=== PATIENT | female | born 1940 | race Caucasian/White ===

== ENCOUNTER 2023-10-21 22:07 | Inpatient (IN) | payer MEDICARE, BC, SELFPAY ==
[2023-10-21 17:08] VITALS: BP 127/79
[2023-10-21 17:31] LABS: % Basophils 0.2 % (0-2); % Immature Granulocytes 0.3 % (0-0.5); % Lymphocytes 6.8 % (20.5-51.1); % Monocytes 11.1 % (1.7-9.3); % Neutrophils 81.6 % (42.2-75.2); Absolute Immature Granulocytes 0.1 10^3/uL (0-0.05); Absolute Monocytes 1.6 10^3/uL (0.1-0.6); Absolute Neutrophils 11.8 10^3/uL (1.4-6.5); Hemoglobin 12.8 g/dL (12.0-16.0); Mean Corp Hgb Conc. 35.6 g/dL (33.0-37.0); Mean Corpuscular Hgb 32.2 pg (27.0-31.0); Mean Corpuscular Volume 90.7 fL (81.0-99.0); Mean Platelet Volume 8.8 fL (7.4-10.4); Nucleated Red Blood Cells % 0 %; Platelet Count 212 10^3/uL (130-400); Red Blood Cell Count 3.97 10^6/uL (4.20-5.40); Red Cell Dist. Width 12.7 % (11.5-14.5); White Blood Cell Count 14.5 10^3/uL (4.8-10.8)
[2023-10-21 17:49] LABS: ALT (SGPT) 46 U/L (0-35); AST (SGOT) 74 U/L (14-36); Albumin 3.6 g/dl (3.5-5.0); Alkaline Phosphatase 82 U/L (38-126); Blood Urea Nitrogen 20 mg/dl (7-17); Calcium 8.7 mg/dl (8.4-10.2); Carbon Dioxide 23 mmol/L (22-30); Chloride 102 mmol/L (98-107); Creatine Phosphokinase 719 U/L (30-135); Glucose 104 mg/dl (70-99); Potassium 3.4 mmol/L (3.5-5.1); Sodium 133 mmol/L (135-145); Total Bilirubin 1.2 mg/dl (0.2-1.3); Total Protein 6.5 g/dl (6.3-8.2); eGFR > 60.00
[2023-10-21] MEDS: NSS 1000 IV ×2 (20:06→23:46)
[2023-10-21] MEDS: MORPHINE SULFATE 2 MG IV (20:41)
[2023-10-21 20:44] VITALS: BP 117/61
--- NOTE | 2023-10-21 20:46 | ED.GENMED ---
History of Present Illness
General
Chief Complaint: Fall
Source: patient
Exam Limitations: none
Time Seen by Provider: 10/21/23 19:25
Nursing documentation reviewed up to this point in time: agreed with
Travel History
Have you had any contact with someone who has COVID-19?: No
Do you have any symptoms of coronavirus? Fever > 100 degrees, chills, cough, shortness of breath, sore throat, loss of taste or smell, muscle aches, or headache?: No
History of Present Illness
History of Present Illness:
Patient states 3 days ago she was bending down to look for something under her bed. States she fell back onto her buttocks. Unable to get self off of the floor. States she crawled on hands and knees. Was eventually able to get to phone and call
friend. Friend called 911 and seh was helped up into her chair. She states she has been unable to get out of her chair since. Complains of generlized body aches. Denies fever/chills. Not eating or drinking. Brought to eD via EMS [facility].
Lives alone
Past History
Past History
ED Past Medical History: COPD, Hypercholesterolemia and Other (Parkinsons disease. Stopped taking her meds.)
ED Past Surgical History: Cardiac (Mitral valve surgery)
Social History
Tobacco: Non-smoker
Personal: Single
Living: alone
Review of Systems
Review of Systems
Allergies reviewed?: Yes
All Other Systems: ROS reviewed and negative except as documented in HPI and ROS
Constitutional: Reports fatigue
EENT: Reports no symptoms
Respiratory: Reports no symptoms
Cardiac: Reports no symptoms
ABD/GI: Reports no symptoms
: Reports no symptoms
Musculoskeletal: Reports joint pain (generalized body aches. Increased pain to left knee, back)
Skin: Reports no symptoms
Neurological: Reports weakness
Psychiatric: Reports no symptoms
Phy Exam
General Physical Exam
General Presentation: moderate distress
General Skin: warm and dry
General Habitus: normal
General Mental: alert
General Hydration: dry mucous membranes
Cardiovascular Exam
Cardiovascular Exam: regular rate/rhythm
Pulmonary Exam
Pulmonary Exam: lungs clear and no respiratory distress
Gastrointestinal Exam
Gastrointestinal Exam: normal bowel sounds and non tender
Neurological Exam
Neurological Exam: alert, oriented x3, CN II-XII intact, no motor deficits, no sensory deficits and speech normal
Musculoskeletal Exam
Musculoskeletal Exam: full ROM, edema (trace edema BLE) and neuro vasc intact
Skin Exam
Skin Exam: normal color, warm/dry and no rash
Psychiatric Exam
Psychiatric Exam: normal mood/affect
Course
Orders/Labs/Results
Orders:
Orders
10/21/23 Breakfast
Cholesterol Lowering
At Your Request: Full Participation
Does patient need a safe tray?: No
Fluid Restriction: 1440 mL/day (48 oz)
Cholesterol Lowering: Sodium, 2 Gram
10/21/23 17:11
Electrocardiogram (*1) Urgent
Reason for Study: Other
Other Reason for Exam: fall
10/21/23 17:12
EKG- Treatment ONCE
10/21/23 17:22
Complete Blood Count/With Diff Urgent
Comprehensive Metabolic Panel Urgent
Creatine Phosphokinase Urgent
10/21/23 19:35
Urinalysis Reflex To Culture Urgent
Date Specimen was Collected: 10/23/23
Time Specimen was Collected: 10:09
0.9% Sodium Chloride 1000 ml [Nss] 1,000 ml IV BOLUS
CR Cervical Spine 2 or 3 Vw Urgent
Reason For Exam: fall
CR Lumbar Spine Comp Min 4 Vw* Urgent
Comment:
Reason For Exam: fall
CR Thoracic Spine 3 Views Urgent
Comment:
Reason For Exam: fall
Knee, Left 4 or More Views [CR Knee - Left 4 Or More View*] Urgent
Comment:
Reason For Exam: fall
10/21/23 19:36
CR Chest - 2 Views Urgent
Comment:
Reason For Exam: fall
10/21/23 20:37
Morphine Sulfate 2 mg .ROUTE .STK-MED ONE
10/21/23 20:41
Morphine Sulfate 2 mg IV NOW STA
10/21/23 21:31
Admit/Transfer Patient As Directed
Co-Sign Provider:
Level of Care: Inpatient admission
Assign to:: Medical/Surgical
Physician / Group: [email or web address]
Diagnosis: Fall/ Rhabdo/ dehydration/acute on chr gait d/o
Reason for Hospitalization: Fall/ Rhabdo/ dehydration/acute on chr gait d/o
Expected length of stay greater than two midnights?: Yes
ELOS- Estimated Length of Stay in days: 3
I certify the patient meets the requirements for IP care: Yes
10/21/23 21:33
Code Status As Directed
Resuscitation Status: Full Code
10/21/23 22:35
0.9% Sodium Chloride 1000 ml [Nss] 1,000 ml IV 80 mls/hr
Acetaminophen [Tylenol] 650 mg PO Q6HPRN PRN
Ketorolac [Toradol] 15 mg IV Q6HPRN PRN
10/21/23 22:35
Activity As Directed
Activity Level: With Assistance
Intake/ Output As Directed
Frequency: Per unit guidelines
Vital Signs As Directed
Frequency: Per unit guidelines
Weight As Directed
Frequency: Daily
DX Deep Vein Thrombosis Video Routine
10/22/23 06:50
Complete Blood Count/No Diff IN AM
Comprehensive Metabolic Panel IN AM
Creatine Phosphokinase IN AM
10/22/23 08:00
Atorvastatin [Lipitor] 20 mg PO DAILY
Famotidine [Pepcid] 40 mg PO BID
Tiotropium [place] 2.5 Mcg [Spiriva Respimat 2.5 Mcg] 2 puff INH R DAILY
10/22/23 18:00
Enoxaparin Sodium [Lovenox] 40 mg SC QPM
10/23/23 06:54
Creatine Phosphokinase IN AM
Abnormal Lab Results
10/21/23
17:22
WBC 14.5 H 10^3/uL
(4.8-10.8)
RBC 3.97 L 10^6/uL
(4.20-5.40)
Hct 36.0 L %
(37.0-47.0)
MCH 32.2 H pg
(27.0-31.0)
Abs Immat Gran (auto) 0.1 H 10^3/uL
(0-0.05)
Absolute Neuts (auto) 11.8 H 10^3/uL
(1.4-6.5)
Absolute Lymphs (auto) 1.0 L 10^3/uL
(1.2-3.4)
Absolute Monos (auto) 1.6 H 10^3/uL
(0.1-0.6)
Neutrophils % 81.6 H %
(42.2-75.2)
Lymphocytes % 6.8 L %
(20.5-51.1)
Monocytes % 11.1 H %
(1.7-9.3)
Sodium 133 L mmol/L
(135-145)
Potassium 3.4 L mmol/L
(3.5-5.1)
BUN 20 H mg/dl
(7-17)
Glucose 104 H mg/dl
(70-99)
AST 74 H U/L
(14-36)
ALT 46 H U/L
(0-35)
Creatine Kinase 719 H U/L
(30-135)
10/21/23 17:22
10/21/23 17:22
Vital Signs
Initial and Last Documented VS:
Initial Vital Signs
Temp Pulse Resp BP Pulse Ox
97.8 F 84 20 127/79 93
10/21/23 17:08 10/21/23 17:08 10/21/23 17:08 10/21/23 17:08 10/21/23 17:08
Last Documented Vital Signs
Temp Pulse Resp BP Pulse Ox
98 F 93 18 108/70 94
10/24/23 15:00 10/24/23 15:00 10/24/23 15:00 10/24/23 15:00 10/24/23 15:00
*Critical Care Note
Total Time (30-74mins, 75-104mins- exclusive of procedures): Not Applicable
ED Attending Note
-
Portions of this chart may have been created with voice recognition software.� Occasional wrong word or��sound alike� substitutions may have occurred due to the inherent limitations of voice recognition software.
Discharge Plan
Departure
Patient Disposition: Admit
Date of Disposition: 10/21/23
Time of Disposition: 20:58
Presentation/result/management discussed w/ accepting MD/DO: Hospitalist
Covid-19: Not Applicable
Discharge Problem:
Weakness, Dehydration, Rhabdomyolysis
Interventions
Interventions:
*General Assessment Last Done: 10/21/23 17:08
*Neglect/Abuse Screening Last Done: 10/21/23 17:08
ED- Fall Risk Assessment Last Done: 10/21/23 23:01
*Nursing Disposition Last Done: 10/21/23 23:01
ED-Musculoskeletal Assessment Last Done: 10/21/23 22:12
ED- Neurological Assessment Last Done: 10/21/23 22:12
ED-Skin Assessment Last Done: 10/21/23 22:12
Discharge Date and Time
Discharge Date/Time: 10/21/23 23:02
Musculoskeletal Injury Exam
Musculoskeletal Injury Exam
Left Knee:
Pain with Movement?: Moderate
Tender to palpation?: Moderate
Soft tissue swelling?: None
Contusion?: None
Hematoma-local bleeding into tissue?: None
Strain- Sprain- Tear (Connective tissue injury)?: None
Crepitus with movement?: No
Joint instability?: No
Malalignment/deformity?: No
Range of motion: Limited
Distal skin color and temperature: normal-warm & good color
Capillary Refill: normal
Normal distal neurovascular exam?: Yes
Back:
Pain with Movement?: Moderate
Tender to palpation?: Moderate
Soft tissue swelling?: None
External deformity and angulation?: None
Contusion?: None
Hematoma-local bleeding into tissue?: None
Strain- Sprain- Tear (Connective tissue injury)?: Moderate
Crepitus with movement?: No
Joint instability?: No
Malalignment/deformity?: No
Range of motion: Limited
Distal skin color and temperature: normal-warm & good color
Capillary Refill: normal
Normal distal neurovascular exam?: Yes
Neck:
Pain with Movement?: Mild
Tender to palpation?: None
Soft tissue swelling?: None
External deformity and angulation?: None
Contusion?: None
Strain- Sprain- Tear (Connective tissue injury)?: Mild
Crepitus with movement?: No
Joint instability?: No
Malalignment/deformity?: No
Distal skin color and temperature: normal-warm & good color
Capillary Refill: normal
Normal distal neurovascular exam?: Yes
--- NOTE | 2023-10-21 21:24 | HPS.HSE ---
Family Physician
-
Family Physician: Sarahi Buckley
Chief Complaint
-
falls and unable to get out of CHAIR
History of Present Illness
[facility]F [facility] with HX PKdz , no longer on anti PK Meds becuse she did not feel good who reportedly had fall back her buttocks while looking something under her bed. Reports difficult with getting uo she had to crawl on her knees. Then she called
friend , in turn friend called 911 and sit her in chair, Reports she was sitting there for last 3 days. Associated body aches and unable to get out of chair. No PO intake.
Toady she was [facility]
Medical History
Past Medical History
Past Medical History: Reports HTN, Hypercholesterolemia and Other (PARKINSON DZ )
Past Surgical History: Reports Cardiac (MV surgery )
Social History
Tobacco: Non-smoker
Alcohol: None
Living: Alone
Family History
Family History: Not pertinent
Allergies / Home Medications
Allergies reflects when Allergies were last updated in [facility].
Home Medications with original date entered in [facility]
Allergy/Medication List:
Allergies
Allergy/AdvReac Type Severity Reaction Status Date / Time
No Known Allergies Allergy Verified 10/21/23 17:08
Home Medications
calcium carbonate 200 mg calcium (500 mg) chewable tablet (Antacid (calcium carbonate)) 2 tab PO PRN PRN indigestion 10/26/13
cholecalciferol (vitamin D3) 50 mcg (2,000 unit) tablet 1,000 units PO DAILY 10/26/13
multivitamin (One Daily Multivitamin tablet) 1 tab PO DAILY 10/26/13
albuterol sulfate 90 mcg/actuation aerosol inhaler (Albuterol Sulfate HFA) 2 puff inhalation PRN PRN sob 02/29/16
atorvastatin 20 mg tablet 20 mg PO DAILY 02/29/16
pantoprazole 40 mg tablet,delayed release 40 mg PO PRN PRN Reflux 02/29/16
artificial tears(hypromellose) 0.3 % eye gel 1 drp BOTH EYES DAILY 03/11/16
zolpidem 10 mg tablet 10 mg PO HSPRN PRN Sleep 03/11/16
nitrofurantoin monohydrate/macrocrystals 100 mg capsule 100 mg PO BID UTI #10 caps 03/12/16
famotidine 40 mg tablet 40 mg PO BID 10/21/23
furosemide 20 mg tablet 20 mg PO DAILY 10/21/23
meloxicam 7.5 mg tablet 7.5 mg PO DAILY PRN mild pain 10/21/23
tiotropium bromide 18 mcg capsule with inhalation device (Spiriva with HandiHaler) 1 cap inhalation R DAILY 10/21/23
Review of Systems
-
Constitutional: Reports No Symptoms
EENT: Reports No Symptoms
Respiratory: Reports No Symptoms
Cardiac: Reports No Symptoms
Abdomen/GI: Reports No Symptoms
: Reports No Symptoms
Musculoskeletal: Reports See HPI
Skin: Reports No Symptoms
Neurological: Reports No Symptoms
Endocrine: Reports No Symptoms
Hematologic/Lymphatic: Reports No Symptoms
Psych: Reports No Symptoms
Physical Exam
Vital Signs
Vital Signs
Temp Pulse Resp BP Pulse Ox
97.8 F 86 20 117/61 87
10/21/23 17:08 10/21/23 20:44 10/21/23 17:08 10/21/23 20:44 10/21/23 20:44
Physical Exam
General: Well Developed and Other (anxious , obese )
HEENT: NormoCephalic and Anicteric
Respiratory: Clear; No Wheezes, Rales or Rhonchi
Cardiac: S1/S2 and Regular Rhythm
Breast: Deferred by me
GI: Soft and Non Tender
Rectal: Deferred by Provider
Genito-urinary: Deferred by me
Musculoskeletal: Other (pain at Lower back , FROM both hips ); No No Edema
Skin: No Jaundice
Neuro: Awake, Alert, AO x 3, No Motor Deficits and Other (Rt ahnd resting trmor )
Psych: Anxious
Laboratory Results
-
10/21/23 17:22
10/21/23 17:22
Laboratory Results
Total Bilirubin 1.2 mg/dl (0.2-1.3) 10/21/23 17:22
AST 74 U/L (14-36) H 10/21/23 17:22
ALT 46 U/L (0-35) H 10/21/23 17:22
Alkaline Phosphatase 82 U/L (38-126) 10/21/23 17:22
Data Reviewed
-
Diagnostic Radiology: Other (pending )
Medical Tests (Nuc Med, Echo, EKG etc): Report Reviewed by me
Lab Data: Labs Reviewed by me
Impression/Plan
-
Reviewed VS: afebrile HR 86 Normotensive POx 93--> 87 on RA
Vital Signs
Temp Pulse Resp BP Pulse Ox
97.8 F 86 20 117/61 87
10/21/23 17:08 10/21/23 20:44 10/21/23 17:08 10/21/23 20:44 10/21/23 20:44
Data
WCC 14.5
Na 133
K 3.4
BUN 20
Cr 0.6
eGFR > 60
AST 74 ALT 46
CPK 719
EKG: NSR , normal EKG
Pending XRs
Cx spine
CXR
Lt Knee
Lx spine
Thx spine
No prior hospitalist admission:
ASSESSMENT & PLAN
Pending Rx reconciliation
Fall complicated by mild Rhabdo and dehydration
Preserved renal function
Acute on chronic ambulatory dysfunction due to Parkinson dz
- check UA
- Held NSAIDs
- XRs to eval for any acute Fx s/p fall
- IV Bolus NS 1 L followed by 100/H
- PT/OT
- Trend CPKs
- Fall precaution
- PT/OT
Leucocytosis - reactive ?
- check UA
- check CXR
Mildly elevated LFTs or elevated AST due to Rhabdo
Borderline hyponatremia and hypokalemia
Suspect dehydration
- Trend BMP and LFTs
- cont Atorvastatin
Parkinson dz - non adherence to Rx for years
Rt hand resting tremors
Associated chronic ambulatory dysfunction use walker to Parkinson dz
Seems intact cognitive function
- Not on Meds for PKDz
- PT/OT
- Neuro consult
HLD on Atorvastatin
HX COPD on Spiriva
DVT Px: LMWH
Code: Full
IP MS
[2023-10-21 22:56] VITALS: BP 138/77
[2023-10-21 22:57] VITALS: BMI 32.8
[2023-10-21] MEDS: TORADOL 15 MG IV (23:52)
[2023-10-22] VITALS (8 sets, daily range): BP systolic 116–158; BP diastolic 61–80; PULSE 87–100; O2SAT 93; BMI 32.8
--- NOTE | 2023-10-22 01:35 | PTCARENOTE ---
Patient received at 2300. Patient puled over with assist x 2 . Vital signs taken BP 146/54, HR 60, respirations 18, O2 97% RA. Patient with complaints of diffuse Back pain. Assessment completed . Patient oriented to room. Patient safely maintained
--- NOTE | 2023-10-22 05:54 | PTCARENOTE ---
Patient complaining if nausea at this time . TOLL [employer] MECHANIC Arabella Serrato made aware . Awaiting orders at this time .
[2023-10-22] MEDS: COMPAZINE 5 MG IV (06:25)
[2023-10-22 07:45] LABS: Hematocrit 33.3 % (37.0-47.0); Hemoglobin 11.7 g/dL (12.0-16.0); Mean Corp Hgb Conc. 35.1 g/dL (33.0-37.0); Mean Corpuscular Hgb 32.8 pg (27.0-31.0); Mean Corpuscular Volume 93.3 fL (81.0-99.0); Mean Platelet Volume 9.5 fL (7.4-10.4); Platelet Count 192 10^3/uL (130-400); Red Blood Cell Count 3.57 10^6/uL (4.20-5.40); Red Cell Dist. Width 12.7 % (11.5-14.5); White Blood Cell Count 12.5 10^3/uL (4.8-10.8)
--- NOTE | 2023-10-22 08:06 | CON.NEURO4 ---
Addendum entered and electronically signed by Homero Holley MD 10/22/23 11:04:
I saw and evaluate the patient I reviewed the note by Mi Pierre agree with the findings with the following comments:
82-year-old woman known to our neurology practice for history of Parkinson's disease presents to the hospital after fall at home. 3 to 4 days ago she was bending down trying to get something from underneath her bed at home and she lost her balance
and fell backwards landing on her buttocks was on the floor for approximately 3 days without food or water intervention was able to crawl call 911 and was admitted to the hospital with findings of mild rhabdo myelitis CK 719.
Patient had been diagnosed with Parkinson's disease based on tremor and positive DaTscan. She was not able to tolerate immediate release Sinemet due to nausea.
She denies any hallucinations, orthostatic hypotension dizziness or syncope, no dysarthria or dysphagia. Denies constipation.
Neurologic examination is remarkable only for resting tremor on the right arm and mild cogwheel rigidity on the right arm mild bradykinesia on the right hand.
Assessment: Parkinson's disease associated ambulatory dysfunction and had fall, with impairments of Parkinson disease and deconditioning was not able to get up and had mild rhabdomyolysis from being down on the floor for approximately 2 to 3 days.
Recommendations
-Continue IV fluids and follow renal function treating rhabdomyolysis
-Patient agreeable to starting rotigotine patch therapy for Parkinson's disease, start 4 mg patch every 24 hours
-She should have outpatient neurology follow-up over telemedicine and will consider 1 tablet 25/100 extended release carbidopa/levodopa which may be more tolerable for her
-Encouraged more physical activity and exercise as largely sedentary at home
-Avoid antipsychotic medications
Original Note:
Consultation - Neurology 4
-
CONSULTING PHYSICIAN: Zeenat Holley MD
REFERRING PHYSICIAN: Hospitalists/Danika Agudelo PA-C
DICTATED BY: REYNALDO Baez
DATE/TIME OF REQUEST: 10/21/23
DATE/TIME OF CONSULTATION: 10/22/23
Reason for Consultation: Parkinson disease, fall
History of Present Illness:
This is an 82-year-old right-handed female who has presented to the hospital on 10/21/23 with report of a fall at home. Patient is known to our Neurology service and is followed by Dr. Holley as an outpatient for Parkinson disease.
From previous encounter by Adilia JACBOS on 02/14/22:
'From previous encounters:�������'This is a 79 years old female with history of hip replacement presented with tremor for evaluation. Patient was referred by her primary physician.�������Patient reported that her hand tremor started gradually over
the past year and predominantly in right hand. Hand tremor happens mainly with rest and she also has tremor with hand writing at times. She denies tremor with eating and drinking. She drinks coffee and alcohol occasionally and did not notice
difference of tremor after coffee intake. Patient also noticed stiffness of her body and slowness with walking. She reported gait difficulty since she had a hip replacement on the right side about 5 years ago. She feels difficulty to control her
right leg and difficulty with balance. She had a fall recently at home. She was scheduled with physical therapy this week. She does not routinely exercise at home.�������She reported good sense of smell. She does not have difficulty with speech or
swallowing. She is able to maintain most of her daily function independently. She walks with a cane outside and does not walk with a cane when she was at home. She has vivid dream at times him but she denies hallucinations. Her memory has been
stable over the past year. She does not have constipations. She denies family history of Parkinson disease. However her significant boyfriend had Parkinson disease which makes her concern if she has Parkinson disease.�������
She has her DaTscan scheduled 01/2021- Positive for parkinsonian syndrome.�������
Interval history:�������Since last visit, patient reported tremor improved with taking Sinemet 25/100 mg to 1 tablet tid with carbidopa 25 mg tid. NO SE from medications. She has difficulty with balance and walks with a cane. But she has no falls
recently and has no hallucinations. She reported she was found lung mass and had surgery recently to remove the lung mass with thoracic surgeon.'�������
Today 02/14/2022�������Patient seen in the office. Patient has been continuing to take Sinemet and carbidopa for nausea. She has been doing well. She reports her tremor is well controlled medication. She has not had any recent falls. She does state
that her balance is off. She stopped physical therapy because she did not think it was helpful. She has been using a cane. She denies any hallucinations. She denies any dark line in her memory.'
Four days ago on 10/18/23, patient reports that she was bending down trying to get something from under her bed, when she lost her balance and fell backwards onto the ground landing on her buttocks. She was able to crawl to her phone and called a
friend, who called 911. EMS helped the patient up and into a chair, but patient reports she was too weak to stand up out of the chair and spent the past three days sitting there without food or water. CK on admission was 719, WBC 14.5, AST 74, ALT
46. Neurology is consulted due to patient reporting that she has not been taking her Sinemet and carbidopa due to nausea, and concern that this is affecting her ambulation. Patient reports that she has a daily intermittent tremor in her right hand
mostly at rest. She denies any hallucinations, swallowing/speech difficulty, changes in smell, dizziness with standing, and shuffled gait. She does endorse that she is 'slow getting around.' She attributes this to getting older. She uses a cane for
ambulation at all times. She still drives and does her own grocery shopping/cooking. She is not taking her medication due to nausea but has not tried any alternative PD treatments. She was in physical therapy as an outpatient, but she reports she
stopping going to that too. Currently, she endorses lower back pain while laying in bed, generalized aching, and weakness. She denies any headache, dizziness, vision changes, speech/swallow difficulty, nausea, numbness, chest pain, palpitations, and
shortness of breath.
Past Medical History: Parkinson disease, COPD, HLD, insomnia, osteopenia, osteoarthritis, GERD, chronic back pain, tinnitus, pelvic mass, cystitis, peripheral neuropathy
Surgical History: B/L cataract removal, hysterectomy, appendectomy, hernia repair, R THR, lung nodule resection
Family History: Father- CVA.
Social History: Former smoker.
Allergies: No known allergies.
Home Medications: See below.
Review of Symptoms:
Patient denies any fever, headache, chest pain, shortness of breath, GI or symptoms.
�Per the HPI.�All systems are reviewed negative except above.
Physical Exam:
The patient is afebrile, abdomen is nondistended, breathing is unlabored, skin is warm and dry, no edema.
Neurologic Examination:
The patient is awake, alert and oriented x 3, some forgetfulness to recent events. She is able to follow commands and answer questions appropriately. There is no aphasia or dysarthria. On cranial nerve assessment, pupils are 3 mm bilateral, round
and reactive to light and accommodation. Visual hendrickson are full. Extraocular movements are intact. Facial sensations are intact and bilaterally symmetrical, there is no facial asymmetry. Hearing is intact bilaterally to normal conversation volume.
Tongue palate and uvula are midline. Sternocleidomastoid strengths are full bilaterally. Motor strengths are 5/5 bilateral upper and 3/5 bilateral lower extremities on medical research [place] scale. There is no drift. There is an intermittent low
amplitude semirhythmic tremor in the right hand mostly at rest. Deep tendon reflexes are 1+ bilateral upper and absent bilateral lower extremities and Babinski is absent bilaterally. There was no extinction noted on double simultaneous stimulation.
Coordination is intact by finger to nose bilaterally.
Lab Results: See below.
Neuro Imaging: None.
Differentials for the patient's presentation include:
1. Parkinson disease
2. Ambulatory dysfunction/deconditioning
3. Rhabdomyolysis
Patient has the following risk factors for their symptoms: PD not on meds, sedentary lifestyle
Recommendations:
-Initiate Neupro 4mg transdermal patch daily.
-Check orthostatic vital signs BID.
-PT/OT/ST evaluations. Patient would benefit from outpatient physical therapy.
-Urinalysis pending.
-Supportive care per Hospitalists service.
-Patient should follow-up with Neurology as an outpatient in about 4 weeks. May see the NUCLEAR MONITORING TECHNICIAN or Dr. Holley, telehealth visit is acceptable.
Discussed patient care with: Dr. Holley, the patient
Vital Signs and Labs
-
Vital Signs and Labs:
Vital Signs
Temp Pulse Resp BP Pulse Ox
98.2 F 72 18 116/63 93
10/22/23 07:00 10/22/23 07:00 10/22/23 07:00 10/22/23 07:00 10/22/23 07:00
Lab Results
10/22/23 06:50
10/22/23 06:50
Sodium 133 mmol/L (135-145) L 10/22/23 06:50
Potassium 3.1 mmol/L (3.5-5.1) L 10/22/23 06:50
BUN 20 mg/dl (7-17) H 10/22/23 06:50
Glucose 88 mg/dl (70-99) 10/22/23 06:50
Calcium 7.9 mg/dl (8.4-10.2) L 10/22/23 06:50
Medications
-
Active Medications
Generic Name Dose Route Start Last Admin
Trade Name Freq PRN Reason Stop Dose Admin
Acetaminophen 650 mg 10/21/23 22:35
Acetaminophen 325 Mg Tablet PO 11/18/23 22:34
Q6HPRN PRN
mild pain/ fever>100.5F
Atorvastatin Calcium 20 mg 10/22/23 08:00 10/22/23 09:05
Atorvastatin (Lipitor) 20 Mg Tablet PO 11/19/23 07:59 20 mg
DAILY CHADNRAKANT Administration
Enoxaparin Sodium 40 mg 10/22/23 18:00
Enoxaparin Sodium 40 Mg/0.4 Ml Syringe SC 11/19/23 17:59
QPM CHANDRAKANT
Famotidine 40 mg 10/22/23 08:00 10/22/23 09:05
Famotidine 40 Mg Tablet PO 11/19/23 07:59 40 mg
BID CHANDRAKANT Administration
Sodium Chloride 1,000 mls @ 80 mls/hr 10/21/23 22:35 10/21/23 23:46
Nss IV 1,000 mls
.[id number] CHANDRAKANT Administration
Ketorolac Tromethamine 15 mg 10/21/23 22:35 10/22/23 09:09
Ketorolac 15 Mg/Ml Injection IV 10/26/23 22:34 15 mg
Q6HPRN PRN Administration
mod/severe pain
Potassium Chloride 20 meq 10/22/23 20:00
Potassium Chloride 20 Meq Extended Release Tablet PO 11/19/23 19:59
BID CHANDRAKANT
Rotigotine 4 mg 10/22/23 10:15
Rotigotine (Neupro) 4 Mg Patch TRANSDERM 11/19/23 10:14
DAILY CHANDRAKANT
Sodium Chloride 0 flush 10/21/23 23:00
Sodium Chloride 0.9% (Flush) Syringe IV 11/18/23 22:59
PER PROTOCOL CHANDRAKANT
Tiotropium [place] 2 puff 10/22/23 08:00 10/22/23 08:34
Tiotropium (Spiriva Respimat) 2.5 Mcg Inhaler INH 11/19/23 07:59 2 puff
R DAILY CHANDRAKANT Administration
Home Medications
Medication Instructions Recorded
cholecalciferol (vitamin D3) 50 1,000 units PO DAILY 10/26/13
mcg (2,000 unit) tablet
multivitamin (One Daily 1 tab PO DAILY 10/26/13
Multivitamin tablet)
atorvastatin 20 mg tablet 20 mg PO DAILY 02/29/16
famotidine 40 mg tablet 40 mg PO BID 10/21/23
furosemide 20 mg tablet 20 mg PO DAILY 10/21/23
meloxicam 7.5 mg tablet 7.5 mg PO HS PRN mild pain 10/21/23
tiotropium bromide 18 mcg capsule 1 cap inhalation R DAILY 10/21/23
with inhalation device (Spiriva
with HandiHaler)
trazodone 100 mg tablet 100 mg PO HS 10/21/23
[2023-10-22 08:15] LABS: ALT (SGPT) 38 U/L (0-35); AST (SGOT) 52 U/L (14-36); Albumin 2.8 g/dl (3.5-5.0); Alkaline Phosphatase 86 U/L (38-126); Blood Urea Nitrogen 20 mg/dl (7-17); Calcium 7.9 mg/dl (8.4-10.2); Carbon Dioxide 22 mmol/L (22-30); Chloride 105 mmol/L (98-107); Creatine Phosphokinase 396 U/L (30-135); Estimated Creatinine Clearance 77 ml/min; Glucose 88 mg/dl (70-99); Potassium 3.1 mmol/L (3.5-5.1); Sodium 133 mmol/L (135-145); Total Protein 5.3 g/dl (6.3-8.2); eGFR > 60.00
[2023-10-22] MEDS: SPIRIVA RESPIMAT 2.5 MCG 2 PUFF INH (08:34)
[2023-10-22] MEDS: LIPITOR 20 MG PO (09:05)
[2023-10-22] MEDS: PEPCID 40 MG PO ×2 (09:05→20:34)
[2023-10-22] MEDS: TORADOL 15 MG IV ×2 (09:09→17:23)
--- NOTE | 2023-10-22 09:42 | W.PN.HOSP.TC ---
Addendum entered and electronically signed by Waldo Rosado DO 10/22/23 16:28:
Mild traumatic rhabdomyolysis due to fall
Original Note:
Today's Communication/Plan
-
PT/OT
Orthostatics
Replete potassium
TSH
Urine studies
Neurology consult
Assessment / Plan
Assessment / Plan
Gen-AAOx3, NAD
HEENT-NC, AT, anicteric, clear oral mm
Neck-supple
CV-reg, no M, +S1/S2
Lungs-clear B/L
Abd-soft, NT, ND
Ext-no edema
Musculoskeletal-no cyanosis, clubbing
Skin-warm and dry
Neuro-grossly non-focal
Psych-calm, cooperative
Ambulatory dysfunction/fall -due to deconditioning, generalized weakness, aging and frailty. PT/OT consulted. Check orthostatics.
Hyponatremia -sodium stable at 133. Check TSH, urine studies.
Hypokalemia -will replete. Check magnesium.
Elevated transaminases -hold atorvastatin. Labs trending down.
Elevated white blood cells -suspect leukemoid reaction. Doubt infection.
Mild rhabdomyolysis -due to fall, CPK trending down.
Parkinson's disease -not on meds as patient states they cause too many side effects. Neurology consulted.
Hyperlipidemia
COPD without exacerbation -stable.
Full code
Dispo -SNF versus home with VN.
Anticipated Discharge: Within 24 hours
Subjective/Interval History
-
Date of Service: October 22, 2023
Patient seen and examined. No complaints currently. Sitting in the chair.
Objective Data
-
Labs:
Laboratory Results
10/22/23
06:50
WBC 12.5 H
Hgb 11.7 L
Hct 33.3 L
Plt Count 192
Sodium 133 L
Potassium 3.1 L
Chloride 105
Carbon Dioxide 22
BUN 20 H
Creatinine 0.5 L
Glucose 88
Calcium 7.9 L
Total Bilirubin 1.0
AST 52 H
ALT 38 H
Alkaline Phosphatase 86
Vital Signs:
Vital Signs
Temp Pulse Resp BP Pulse Ox
98.2 F 72 18 116/63 93
10/22/23 07:00 10/22/23 07:00 10/22/23 07:00 10/22/23 07:00 10/22/23 07:00
Review of Systems
-
History Source: Patient
All other systems: Reviewed and negative
[2023-10-22 10:19] LABS: Magnesium 2.1 mg/dl (1.6-2.3)
[2023-10-22] MEDS: KCL 40 MEQ PO (10:41)
[2023-10-22] MEDS: NEUPRO 4 MG TRANSDERM (10:42)
[2023-10-22 11:11] LABS: TSH 2.06 uIU/ml (0.47-4.68)
[2023-10-22] MEDS: NSS 1000 IV (12:06)
--- NOTE | 2023-10-22 12:27 | CM ---
building rental manager reviewed patient's chart and met with patient and patient reports that she lives alone in a multilevel home with elevator, patient was independent with adl's and used cane with ambulation. Patient reports she has 2 very good friends in
area and her sister lives in [place]. Patient drives. building rental manager reviewed with patient possible discharge options and patient is hoping that she will be cleared to return to home, patient is agreeable to visiting nurses at discharge and
selected [facility]. [facility] liaison is aware.
Pharmacy: [facility]
Physician: Sarahi Buckley
Plan; building rental manager will await recommendations from physical therapy.
--- NOTE | 2023-10-22 13:30 | VNURNOTE ---
Home health liaison met with patient to discuss [facility] services, visit scheduling/frequency, homebound status and pet policy. Patient understands home visits will be 1-2 times a week to assess and teach medical management. Patient aware a visiting
nurse will contact them for start of care within 1-2 days after discharge from . Brochure given with contact information. [facility] Referral completed in care port
--- NOTE | 2023-10-22 15:44 | PN.CDI ---
CDI
- -
CDI:
Physician Documentation Request
Admit Date: 10/21/23 22:07
Dear Doctor Ashlee,
Patient admitted following a fall.
H&P: 'had fall back her buttocks while looking something under her bed....sit her in chair, Reports she was sitting there for last 3 days.'
10/22 Hospitalist PN: 'Mild rhabdomyolysis -due to fall'
Based on the above, please clarify in your note the type of rhabdomyolysis:
Traumatic
Nontraumatic
Other
Use of terms such as suspected, likely, concern for, or probable (associated with a specific diagnosis that is being evaluated, monitored, or treated as if it exists) are acceptable and can be coded in the inpatient setting, when documented at the
time of discharge.
Thank you,
Blossom Valiente RN, BSN
CDI Specialist
Available via [employer] text
Please use your independent medical judgment in providing your response.
[2023-10-22] MEDS: LOVENOX 40 MG SC (17:23)
[2023-10-22] MEDS: KCL 20 MEQ PO (20:34)
[2023-10-23] MEDS: NSS 1000 IV (00:51)
[2023-10-23] MEDS: TORADOL 15 MG IV (05:22)
[2023-10-23 06:00] VITALS: BMI 33.9
[2023-10-23 07:33] LABS: ALT (SGPT) 36 U/L (0-35); AST (SGOT) 39 U/L (14-36); Albumin 2.6 g/dl (3.5-5.0); Alkaline Phosphatase 77 U/L (38-126); Blood Urea Nitrogen 14 mg/dl (7-17); Calcium 7.7 mg/dl (8.4-10.2); Carbon Dioxide 23 mmol/L (22-30); Chloride 109 mmol/L (98-107); Creatine Phosphokinase 168 U/L (30-135); Estimated Creatinine Clearance 78 ml/min; Glucose 103 mg/dl (70-99); Potassium 3.5 mmol/L (3.5-5.1); Sodium 134 mmol/L (135-145); Total Bilirubin 0.8 mg/dl (0.2-1.3); Total Protein 5.1 g/dl (6.3-8.2); eGFR > 60.00
[2023-10-23] MEDS: SPIRIVA RESPIMAT 2.5 MCG 2 PUFF INH (07:54)
[2023-10-23 07:56] VITALS: BP 134/69
[2023-10-23] MEDS: KCL 20 MEQ PO (08:47)
[2023-10-23] MEDS: NEUPRO 4 MG TRANSDERM (08:47)
[2023-10-23] MEDS: LIPITOR 20 MG PO (08:47)
[2023-10-23] MEDS: PEPCID 40 MG PO ×2 (08:47→20:32)
[2023-10-23 10:12] VITALS: BP 125/74; PULSE 83
[2023-10-23 10:15] VITALS: BP 124/74
[2023-10-23 10:27] LABS: Urine Albumin 1+ (Neg - Trace); Urine Bilirubin 1+ (Negative); Urine Character Very Cloudy (Clear); Urine Color Brown; Urine Glucose Negative (Negative); Urine Ketone 1+ (Negative); Urine Leukocyte 2+ (Negative); Urine Nitrite Negative (Negative); Urine Occult Blood 4+ (Negative); Urine Specific Gravity 1.015 (<1.030); Urine Urobilinogen Negative (Neg - 1+)
--- NOTE | 2023-10-23 10:34 | CM ---
ranch manager reviewed patient's chart and met with patient, director of casework department reviewed with patient [facility], however patient has selected [facility] skilled. Referral sent to [facility] skilled.
Plan; Skilled placement at [facility].
[2023-10-23 10:44] LABS: Urine Bacteria Many (Negative); Urine Red Blood Cell 16-20 /HPF (0-2); Urine White Cell 80-90 /HPF (0-5)
[2023-10-23 10:53] LABS: Osmolality Urine 635 mOsm/kg (300-900)
--- NOTE | 2023-10-23 10:54 | W.PN.HOSP.TC ---
Today's Communication/Plan
-
Fluid restriction
Start MiraLAX
Continue potassium
Repeat labs in the morning
Continue PT/OT
Assessment / Plan
Assessment / Plan
Gen-AAOx3, NAD
HEENT-NC, AT, anicteric, clear oral mm
Neck-supple
CV-reg, no M, +S1/S2
Lungs-clear B/L
Abd-soft, NT, ND
Ext-no edema
Musculoskeletal-no cyanosis, clubbing
Skin-warm and dry
Neuro-grossly non-focal
Psych-calm, cooperative
Ambulatory dysfunction/fall -due to deconditioning, generalized weakness, aging, Parkinson's disease, and frailty. PT/OT consulted. She is not orthostatic.
Hyponatremia -sodium stable at 134. TSH normal. Urine osmolality 635. Urine sodium pending. Will fluid restrict.
Hypokalemia -magnesium was normal. Potassium 3.5 today. Continue repletion.
Elevated transaminases -etiology unclear, hold atorvastatin. Labs trending down.
Elevated white blood cells -suspect leukemoid reaction. Doubt infection.
Mild traumatic rhabdomyolysis -due to fall, CPK trending down.
Parkinson's disease -not on meds prior to admission as patient states they cause too many side effects. Neurology consulted, recommendation made to start rotigotine patch. Outpatient neurology follow-up with consideration of starting extended
release Sinemet.
Hyperlipidemia
COPD without exacerbation -stable.
Full code
Dispo -stable for discharge to SNF, will be going to [facility] tomorrow as per case management.
Anticipated Discharge: Within 24 hours
Subjective/Interval History
-
Date of Service: October 23, 2023
Patient seen and examined. Feels constipated.
Objective Data
-
Labs:
Laboratory Results
10/23/23
06:54
Sodium 134 L
Potassium 3.5
Chloride 109 H
Carbon Dioxide 23
BUN 14
Creatinine 0.5 L
Glucose 103 H
Calcium 7.7 L
Total Bilirubin 0.8
AST 39 H
ALT 36 H
Alkaline Phosphatase 77
Vital Signs:
Vital Signs
Temp Pulse Resp BP Pulse Ox
98.1 F 91 16 134/69 92
10/23/23 07:56 10/23/23 07:56 10/23/23 07:56 10/23/23 07:56 10/23/23 07:56
I&O
10/22/23 10/23/23 10/24/23
06:59 06:59 06:59
Intake Total 2720 / 2720
Output Total 500 / 500
Balance 2220 / 2220
Review of Systems
-
History Source: Patient
All other systems: Reviewed and negative
[2023-10-23 11:31] LABS: Urine Sodium 69 mmol/L (30-90)
[2023-10-23] MEDS: MIRALAX 17 GRAMS PO (12:19)
[2023-10-23 15:51] VITALS: BP 124/64
[2023-10-23] MEDS: TYLENOL 650 MG PO (15:52)
--- NOTE | 2023-10-23 15:54 | PTCARENOTE ---
Notified provider of patient's temperature, given tylenol
[2023-10-23] MEDS: LOVENOX 40 MG SC (17:35)
[2023-10-23] MEDS: KCL PO ×2 (20:32→20:41)
[2023-10-23 23:00] VITALS: BP 149/78
[2023-10-24 05:30] VITALS: BMI 32.6
[2023-10-24 06:05] LABS: % Basophils 0.2 % (0-2); % Eosinophils 0.1 % (0-6); % Immature Granulocytes 0.7 % (0-0.5); % Lymphocytes 8.7 % (20.5-51.1); % Monocytes 10.2 % (1.7-9.3); % Neutrophils 80.1 % (42.2-75.2); Absolute Immature Granulocytes 0.1 10^3/uL (0-0.05); Absolute Lymphocytes 1.1 10^3/uL (1.2-3.4); Absolute Monocytes 1.3 10^3/uL (0.1-0.6); Absolute Neutrophils 10.1 10^3/uL (1.4-6.5); Hematocrit 32.1 % (37.0-47.0); Hemoglobin 11.2 g/dL (12.0-16.0); Mean Corp Hgb Conc. 34.9 g/dL (33.0-37.0); Mean Corpuscular Hgb 32.1 pg (27.0-31.0); Mean Platelet Volume 9.4 fL (7.4-10.4); Nucleated Red Blood Cells % 0 %; Platelet Count 229 10^3/uL (130-400); Red Blood Cell Count 3.49 10^6/uL (4.20-5.40); Red Cell Dist. Width 13.1 % (11.5-14.5); White Blood Cell Count 12.6 10^3/uL (4.8-10.8)
[2023-10-24 06:40] LABS: ALT (SGPT) 37 U/L (0-35); AST (SGOT) 38 U/L (14-36); Albumin 2.6 g/dl (3.5-5.0); Alkaline Phosphatase 87 U/L (38-126); Blood Urea Nitrogen 12 mg/dl (7-17); Calcium 7.8 mg/dl (8.4-10.2); Carbon Dioxide 26 mmol/L (22-30); Chloride 105 mmol/L (98-107); Estimated Creatinine Clearance 77 ml/min; Glucose 102 mg/dl (70-99); Potassium 3.5 mmol/L (3.5-5.1); Sodium 134 mmol/L (135-145); Total Bilirubin 0.8 mg/dl (0.2-1.3); Total Protein 5.1 g/dl (6.3-8.2); eGFR > 60.00
[2023-10-24 07:00] VITALS: BP 130/69
--- NOTE | 2023-10-24 08:01 | W.PN.HOSP.TC ---
Addendum entered and electronically signed by Waldo Rosado DO 10/24/23 11:33:
COVID-19 antigen negative.
Urine culture shows greater than 100,000 E. coli.
Blood cultures negative.
Will start empiric IV ceftriaxone for presumed UTI pending culture data.
Original Note:
Today's Communication/Plan
-
Await cultures
COVID-19
Assessment / Plan
Assessment / Plan
Gen-AAOx3, NAD
HEENT-NC, AT, anicteric, clear oral mm
Neck-supple
CV-reg, no M, +S1/S2
Lungs-clear B/L
Abd-soft, NT, ND
Ext-no edema
Musculoskeletal-no cyanosis, clubbing
Skin-warm and dry
Neuro-grossly non-focal
Psych-calm, cooperative
Sepsis -was not present on admission. No localizing findings. Denies cough or shortness of breath. She does have low-grade leukocytosis and yesterday had a low-grade fever. Etiology unclear. Check COVID-19 antigen. Blood cultures pending. She
has no urinary symptoms, doubt UTI despite pyuria on urinalysis. Currently not on antibiotics.
Ambulatory dysfunction/fall -due to deconditioning, generalized weakness, aging, Parkinson's disease, and frailty. PT/OT consulted. She is not orthostatic.
Hyponatremia -sodium stable at 134. TSH normal. Urine osmolality 635. Urine sodium pending. Will fluid restrict.
Hypokalemia -magnesium was normal. Potassium 3.5 today. Continue repletion. Potassium stable.
Elevated transaminases -etiology unclear, hold atorvastatin. Labs trending down.
Mild traumatic rhabdomyolysis -due to fall, CPK trending down.
Parkinson's disease -not on meds prior to admission as patient states they cause too many side effects. Neurology consulted, recommendation made to start rotigotine patch. Outpatient neurology follow-up with consideration of starting extended
release Sinemet.
Hyperlipidemia
COPD without exacerbation -stable.
Full code
Dispo -anticipate discharge to [facility] when medically stable. Awaiting blood culture results, COVID-19 test.
Anticipated Discharge: Within 24 hours
Subjective/Interval History
-
Date of Service: October 24, 2023
Patient seen and examined. States she does not feel well but cannot go into further detail.
Objective Data
-
Labs:
Laboratory Results
10/24/23
05:16
WBC 12.6 H
Hgb 11.2 L
Hct 32.1 L
Plt Count 229
Sodium 134 L
Potassium 3.5
Chloride 105
Carbon Dioxide 26
BUN 12
Creatinine 0.5 L
Glucose 102 H
Calcium 7.8 L
Total Bilirubin 0.8
AST 38 H
ALT 37 H
Alkaline Phosphatase 87
Vital Signs:
Vital Signs
Temp Pulse Resp BP Pulse Ox
97.6 F 84 20 149/78 93
10/23/23 23:00 10/23/23 23:00 10/23/23 23:00 10/23/23 23:00 10/23/23 23:00
I&O
10/23/23 10/24/23 10/25/23
06:59 06:59 06:59
Intake Total 2720 / 2720 940 / 940
Output Total 500 / 500
Balance 2220 / 2220 940 / 940
Review of Systems
-
History Source: Patient
All other systems: Reviewed and negative
[2023-10-24] MEDS: LIPITOR 20 MG PO (08:34)
[2023-10-24] MEDS: MIRALAX 17 GRAMS PO (08:34)
[2023-10-24] MEDS: TORADOL 15 MG IV (08:34)
[2023-10-24] MEDS: KCL PO ×2 (08:34→08:41)
[2023-10-24] MEDS: NEUPRO 4 MG TRANSDERM (08:34)
[2023-10-24] MEDS: PEPCID 40 MG PO ×2 (08:34→20:33)
[2023-10-24] MEDS: SPIRIVA RESPIMAT 2.5 MCG 2 PUFF INH (08:38)
[2023-10-24 08:50] LABS: COVID-19 Antigen Negative (Negative)
--- NOTE | 2023-10-24 09:34 | PTCARENOTE ---
Notified provider of patient's preliminary UC results showing e.coli. No further interventions at this time.
[2023-10-24] MEDS: ROCEPHIN 1000 MG IV (13:21)
[2023-10-24] MEDS: STERILE WATER FOR INJECTION 10 ML IV (13:22)
[2023-10-24 15:00] VITALS: BP 108/70
[2023-10-24 15:10] VITALS: BP 108/70; PULSE 93
[2023-10-24 15:40] VITALS: BP 108/70
[2023-10-24] MEDS: LOVENOX 40 MG SC (18:23)
[2023-10-24] MEDS: KCL 20 MEQ PO (20:33)
[2023-10-24 23:00] VITALS: BP 134/82
[2023-10-25 04:30] VITALS: BMI 33.0
[2023-10-25 07:00] VITALS: BP 129/78
[2023-10-25 07:44] LABS: % Basophils 0.3 % (0-2); % Eosinophils 0.8 % (0-6); % Immature Granulocytes 0.7 % (0-0.5); % Neutrophils 76.2 % (42.2-75.2); Absolute Eosinophils 0.1 10^3/uL (0-0.7); Absolute Immature Granulocytes 0.1 10^3/uL (0-0.05); Absolute Lymphocytes 1.3 10^3/uL (1.2-3.4); Absolute Monocytes 1.3 10^3/uL (0.1-0.6); Absolute Neutrophils 8.8 10^3/uL (1.4-6.5); Hematocrit 31.7 % (37.0-47.0); Hemoglobin 11.2 g/dL (12.0-16.0); Mean Corp Hgb Conc. 35.3 g/dL (33.0-37.0); Mean Corpuscular Hgb 32.5 pg (27.0-31.0); Mean Corpuscular Volume 91.9 fL (81.0-99.0); Mean Platelet Volume 9.1 fL (7.4-10.4); Nucleated Red Blood Cells % 0 %; Platelet Count 245 10^3/uL (130-400); Red Blood Cell Count 3.45 10^6/uL (4.20-5.40); Red Cell Dist. Width 12.9 % (11.5-14.5); White Blood Cell Count 11.5 10^3/uL (4.8-10.8)
[2023-10-25 08:09] LABS: ALT (SGPT) 34 U/L (0-35); AST (SGOT) 32 U/L (14-36); Albumin 2.5 g/dl (3.5-5.0); Alkaline Phosphatase 90 U/L (38-126); Blood Urea Nitrogen 11 mg/dl (7-17); Carbon Dioxide 28 mmol/L (22-30); Chloride 102 mmol/L (98-107); Estimated Creatinine Clearance 77 ml/min; Glucose 100 mg/dl (70-99); Potassium 3.5 mmol/L (3.5-5.1); Sodium 132 mmol/L (135-145); Total Bilirubin 0.8 mg/dl (0.2-1.3); Total Protein 5.1 g/dl (6.3-8.2); eGFR > 60.00
[2023-10-25] MEDS: NEUPRO 4 MG TRANSDERM (08:11)
[2023-10-25] MEDS: PEPCID 40 MG PO (08:12)
[2023-10-25] MEDS: MIRALAX 17 GRAMS PO (08:12)
[2023-10-25] MEDS: KCL 20 MEQ PO (08:12)
[2023-10-25] MEDS: LIPITOR 20 MG PO (08:12)
[2023-10-25] MEDS: SPIRIVA RESPIMAT 2.5 MCG 2 PUFF INH (08:49)
--- NOTE | 2023-10-25 09:22 | W.PN.HOSP.TC ---
Today's Communication/Plan
-
Discharge planning
Change to Macrobid
Assessment / Plan
Assessment / Plan
Gen-AAOx3, NAD
HEENT-NC, AT, anicteric, clear oral mm
Neck-supple
CV-reg, no M, +S1/S2
Lungs-clear B/L
Abd-soft, NT, ND
Ext-no edema
Musculoskeletal-no cyanosis, clubbing
Skin-warm and dry
Neuro-grossly non-focal
Psych-calm, cooperative
Sepsis -was not present on admission. Sepsis possibly due to UTI. No localizing findings. Denies cough or shortness of breath. WBC is trending down. Afebrile today. Etiology unclear. Check COVID-19 antigen. Blood cultures negative so far.
Urine culture shows E. coli. Received 1 dose of ceftriaxone. Will convert to Macrobid.
Ambulatory dysfunction/fall -due to deconditioning, generalized weakness, aging, Parkinson's disease, and frailty. PT/OT consulted. She is not orthostatic.
Hyponatremia -sodium 132. TSH normal. Urine osmolality 635. Urine sodium pending. Will fluid restrict.
Hypokalemia -magnesium was normal. Potassium 3.5 today. Continue repletion. Potassium stable.
Elevated transaminases -etiology unclear, hold atorvastatin. Labs trending down.
Mild traumatic rhabdomyolysis -due to fall, CPK trending down.
Parkinson's disease -not on meds prior to admission as patient states they cause too many side effects. Neurology consulted, recommendation made to start rotigotine patch. Outpatient neurology follow-up with consideration of starting extended
release Sinemet.
Hyperlipidemia
COPD without exacerbation -stable.
Full code
Dispo -medically stable for discharge to rehab. Case management aware.
Anticipated Discharge: Within 24 hours
Subjective/Interval History
-
Date of Service: October 25, 2023
Patient seen and examined. No complaints today.
Objective Data
-
Labs:
Laboratory Results
10/25/23
07:16
WBC 11.5 H
Hgb 11.2 L
Hct 31.7 L
Plt Count 245
Sodium 132 L
Potassium 3.5
Chloride 102
Carbon Dioxide 28
BUN 11
Creatinine 0.5 L
Glucose 100 H
Calcium 8.0 L
Total Bilirubin 0.8
AST 32
ALT 34
Alkaline Phosphatase 90
Vital Signs:
Vital Signs
Temp Pulse Resp BP Pulse Ox
99 F 75 16 129/78 93
10/25/23 07:00 10/25/23 08:52 10/25/23 08:52 10/25/23 07:00 10/25/23 08:52
I&O
10/24/23 10/25/23 10/26/23
06:59 06:59 06:59
Intake Total 940 / 940 720 / 720
Balance 940 / 940 720 / 720
Review of Systems
-
History Source: Patient
All other systems: Reviewed and negative
--- NOTE | 2023-10-25 09:44 | W.DS.TRANS ---
DC Summary - Parts Delivery Driver
-
Discharge Instructions:
Discharge Diagnosis/Procedures Ambulatory dysfunction, Parkinson's disease,
hyponatremia
Diet Low Cholesterol,Low Fat,Restrict fluids to 48 oz
Activity With assistance
Driving Restrictions No driving
Bathing Restrictions None
Blood Work BMP in one week
Instructions:
Stand-Alone Forms:
Changes to Home Medications: No
Discharge Medications:
DC Medications w/original date entered in [facility]
cholecalciferol (vitamin D3) 50 mcg (2,000 unit) tablet 1,000 units PO DAILY 10/26/13
multivitamin (One Daily Multivitamin tablet) 1 tab PO DAILY 10/26/13
atorvastatin 20 mg tablet 20 mg PO DAILY 02/29/16
famotidine 40 mg tablet 40 mg PO BID 10/21/23
furosemide 20 mg tablet 20 mg PO DAILY 10/21/23
meloxicam 7.5 mg tablet 7.5 mg PO HS PRN mild pain 10/21/23
tiotropium bromide 18 mcg capsule with inhalation device (Spiriva with HandiHaler) 1 cap inhalation R DAILY 10/21/23
trazodone 100 mg tablet 100 mg PO HS 10/21/23
polyethylene glycol 3350 17 gram oral powder packet (HealthyLax) 17 g PO DAILY #0 ea 10/23/23
potassium chloride 20 mEq tablet,extended release(part/cryst) 20 meq PO BID #0 tabs 10/23/23
rotigotine 4 mg/24 hour transdermal 24 hour patch (Neupro) 4 mg transdermal DAILY #0 ea 10/23/23
nitrofurantoin monohydrate/macrocrystals 100 mg capsule 100 mg PO BID #5 caps 10/25/23
Home Medication Changes
Pending Results: No
[2023-10-25] MEDS: TORADOL 15 MG IV (10:27)
[2023-10-25] MEDS: FLUZONE HIGH-DOSE QUAD 2023-24 0.699999999999999956 ML IM (10:28)
[2023-10-25] MEDS: MACROBID 100 MG PO (10:28)
--- NOTE | 2023-10-25 10:31 | CM ---
Addendum entered by Lia Alejandra 10/25/23 15:53:
Per [facility] ambulance product picker time has changed to 6:15pm, for patient to transfer to [facility] today, nursing at [facility] and 4th floor at [facility] made aware.
Original Note:
commodities manager spoke with Maraí at [facility] and they have a bed for patient today, rn case management faxed over updated clinical notes, rn case management spoke with patient and her friend Jessie by phone and discussed transfer to [facility] and patient will
go by ambulance, ambulance has been set up for 4:45pm.
Plan; Patient to transfer to [facility] today at 4:45pm.
[facility]
Report [phone]

Plan; Skilled placement at [facility] today, 4:45pm product picker.
--- NOTE | 2023-10-25 11:19 | PTCARENOTE ---
Addendum entered by Hortensia Holley RN 10/25/23 11:19:
Provider recommend encouraging incentive spirometer.
Original Note:
Notified provider of patient's expiratory wheezing
[2023-10-25] MEDS: LOVENOX 40 MG SC (17:37)
== END 2023-10-25 18:05 | DRG 57 ==
LOC: 4 WEST ACU 22:07
PROVIDERS: Emergency Medicine; Nurse Practitioner; ADMITTING PHYSICIAN Internal Medicine; ATTENDING PHYSICIAN Hospitalist; EMERGENCY PHYSICIAN Emergency Medicine; FAMILY PHYSICIAN Family Medicine; OTHER PHYSICIAN Student in an Organized Health Care Education/Training Program
DX: G20.A1 Parkinson's disease without dyskinesia, without mention of fluctuations (principal); E87.1 Hypo-osmolality and hyponatremia; E87.6 Hypokalemia; E78.00 Pure hypercholesterolemia, unspecified; J44.9 Chronic obstructive pulmonary disease, unspecified; Z11.52 Encounter for screening for COVID-19; T79.6XXA Traumatic ischemia of muscle, initial encounter
CPT/HCPCS: 71046; 72040; 72072; 72110; 73564; 80053; 81003; 81015; 82550; 83735; 83935; 84300; 84443; 85025; 85027; 87040; 87077; 87086; 87186; 87811; 90662; 93005; 94640; 96361; 96374; 97116; 97163; 97167; 97530; 99285; G0008

== ENCOUNTER → 2023-10-27 10:46 | Outpatient (REF) | payer MEDICARE, BC, SELFPAY | LOC: OLABP 10:46 | PROVIDERS: ATTENDING PHYSICIAN Family Medicine | DX: M62.82 Rhabdomyolysis (principal); R26.2 Difficulty in walking, not elsewhere classified; N39.0 Urinary tract infection, site not specified; G20.C Parkinsonism, unspecified; E87.1 Hypo-osmolality and hyponatremia; I10 Essential (primary) hypertension | CPT/HCPCS: 36415 ==

== ENCOUNTER → 2023-10-28 10:28 | Outpatient (REF) | payer OTHER, MEDICARE, BC, SELFPAY ==
[2023-10-28 11:27] LABS: Blood Urea Nitrogen 11 mg/dl (7-17); Calcium 8.3 mg/dl (8.4-10.2); Carbon Dioxide 25 mmol/L (22-30); Chloride 103 mmol/L (98-107); Glucose 100 mg/dl (70-99); Potassium 4.2 mmol/L (3.5-5.1); Sodium 134 mmol/L (135-145); eGFR > 60.00
== END ==
LOC: OLABP 10:28
PROVIDERS: ATTENDING PHYSICIAN Family Medicine
DX: M62.82 Rhabdomyolysis (principal); R26.2 Difficulty in walking, not elsewhere classified; N39.0 Urinary tract infection, site not specified; B96.20 Unspecified Escherichia coli [E. coli] as the cause of diseases classified elsewhere; G20.A1 Parkinson's disease without dyskinesia, without mention of fluctuations; E87.1 Hypo-osmolality and hyponatremia; I10 Essential (primary) hypertension
CPT/HCPCS: 36415; 80048